=== PATIENT | female | born 1980 | race Caucasian/White ===

== ENCOUNTER 2018-11-01 13:13 | Emergency (ER) | payer SELFPAY ==
[~2018-11-01] VITALS: Ht 172.7 cm; Wt 113.0 kg
[2018-11-03 06:00] VITALS: BP 115/69
== END 2018-11-01 13:50 | disposition home or self-care (01) ==
LOC: ER 13:13
DX: R06.00 Dyspnea, unspecified (principal); F15.10 Other stimulant abuse, uncomplicated; F14.10 Cocaine abuse, uncomplicated; F20.9 Schizophrenia, unspecified; Z02.89 Encounter for other administrative examinations
CPT/HCPCS: 82962; 99283